=== PATIENT | male | born 1985 | race Caucasian/White ===

== ENCOUNTER 2019-05-21 18:23 | Emergency (ER) | payer OTHER ==
[~2019-05-21] VITALS: Ht 177.8 cm; Wt 127.0 kg
[2019-05-21] MEDS ORDERED: AZIT250 PO (19:11)
== END 2019-05-21 19:22 | disposition home or self-care (01) ==
LOC: ER 18:23
DX: R04.2 Hemoptysis (principal); F17.290 Nicotine dependence, other tobacco product, uncomplicated
CPT/HCPCS: 71046; 99283-25

== ENCOUNTER → 2019-11-27 | Outpatient (CLI) | payer OTHER ==
[~2019-11-27] MED LIST: AZIT250 PO
[2019-11-27 15:59] LABS: Source, Urine Clean Catch
[2019-11-27 16:08] LABS: Appearance, Urine Clear (Clear); Bacteria Not Seen /hpf; Bilirubin, Urine Neg (Neg); Blood, Urine 1+ (Neg); Color, Urine Yellow (P-Yellow); Glucose Qualitative, Urine Neg (Normal); Ketones, Urine Neg (Neg); Leukocyte Esterase, Urine Neg (Neg); Nitrite, Urine Neg (Neg); Protein, Urine Neg (Neg); Red Blood Cells, Urine Rare /hpf (0-2); Specific Gravity, Urine 1.015 (1.003-1.022); Squamous Epithelial Cells Rare /hpf (Few); Urobilinogen, Urine NORM (Normal); White Blood Cells, Urine Not Seen /hpf (0-5)
[2019-11-27 18:04] LABS: Microalb/Creat Ratio UR, Rand 76.381 mg/g (0.000-30.000); Microalbumin, Random Urine 80.2 mg/L (0.000-20.000)
== END ==
LOC: LAB SHORT 15:53 → LAB EV 15:53
PROVIDERS: Family Medicine
DX: I10 Essential (primary) hypertension (principal)
CPT/HCPCS: 81001; 82043; 82570

== ENCOUNTER 2021-11-15 06:55 | Emergency (ER) | payer OTHER ==
[~2021-11-15] VITALS: Ht 177.8 cm; Wt 127.0 kg
[2021-11-15] MEDS ORDERED: AMLO5 (08:10)
[2021-11-15] MEDS ORDERED: BUPR75 PO (08:10)
[2021-11-15] MEDS ORDERED: LOSA25 PO (08:11)
[2021-11-15] MEDS ORDERED: Amoxicillin500 MG PO ×2 (08:26→09:24)
== END 2021-11-15 08:35 | disposition home or self-care (01) ==
LOC: ER 06:55
DX: K04.7 Periapical abscess without sinus (principal); I10 Essential (primary) hypertension; F17.210 Nicotine dependence, cigarettes, uncomplicated; Z79.899 Other long term (current) drug therapy
CPT/HCPCS: 99282